=== PATIENT | male | born 1975 | race Caucasian/White ===

== ENCOUNTER 2022-03-16 15:34 | Emergency (ER) | payer OTHER ==
[2022-03-16] MEDS ORDERED: Lidocaine 1% PF 2 ML SDV INJECT ONE (15:47)
[2022-03-16] MEDS ORDERED: ceFAZolin 1 GM in Premix Bag 1 BAG IV STA (15:47)
[2022-03-16 15:54] VITALS: BP 167/116; PULSE 106
== END 2022-03-16 17:43 | disposition home or self-care (01) ==
LOC: MW.ED 15:34
DX: S68.625A Partial traumatic transphalangeal amputation of left ring finger, initial encounter (principal); E11.9 Type 2 diabetes mellitus without complications; E66.9 Obesity, unspecified; Z68.41 Body mass index [BMI] 40.0-44.9, adult; Z72.0 Tobacco use; W20.8XXA Other cause of strike by thrown, projected or falling object, initial encounter; Y92.89 Other specified places as the place of occurrence of the external cause; Y99.0 Civilian activity done for income or pay
CPT/HCPCS: 64450; 73140; 96365; 99284; J0690; J3490